=== PATIENT | female | born 1965 | race Caucasian/White ===

== ENCOUNTER → 2023-08-01 08:02 | Outpatient (REF) | payer OTHER, SELFPAY | LOC: WDC 08:02 | PROVIDERS: ATTENDING PHYSICIAN Nurse Practitioner Family | DX: Z12.31 Encounter for screening mammogram for malignant neoplasm of breast (principal) | CPT/HCPCS: 77063; 77067 ==

== ENCOUNTER → 2024-08-06 09:36 | Outpatient (REF) | payer OTHER, SELFPAY | LOC: WDC 09:36 | PROVIDERS: ATTENDING PHYSICIAN Nurse Practitioner Family | DX: Z12.31 Encounter for screening mammogram for malignant neoplasm of breast (principal) | CPT/HCPCS: 77063; 77067 ==